=== PATIENT | male | born 1945 | race Hispanic/Latino ===

== ENCOUNTER 2020-04-06 16:17 | Inpatient (IN) | payer MEDICARE, OTHER ==
[2020-04-06] MEDS ORDERED: ACETAMINOPHEN 500 MG TAB PO ONE (16:47)
--- NOTE | 2020-04-06 16:52 | Emergency Department Report ---
ED Shortness of Breath HPI - General Chief Complaint: Dyspnea/Respdistress Stated Complaint: JANE/(L) RIB PAIN Time Seen by Provider: 04/06/20 16:45 Source: patient, EMS Mode of arrival: Stretcher Limitations: No Limitations - History of Present Illness Initial Comments: Mr. Hardin is a 74 years old male with history of CVA with left-sided weakness. Patient brought to the emergency room via EMS from home for evaluation of left- sided rib pain, shortness of breath and difficulty in breathing. Patient also found to be febrile with a temperature of 100.5. Patient stated the symptoms started today he was doing well yesterday. Patient also stated that he has been nauseated this morning but no vomiting. Patient denied any contact with COVID- 19 patients. MD Complaint: shortness of breath, cough, chest pain -: This morning Quality: aching - Related Data Home Medications Medication Instructions Recorded Confirmed Last Taken Unobtainable 04/07/20 04/07/20 Unknown Allergies Allergy/AdvReac Type Severity Reaction Status Date / Time No Known Allergies Allergy Unverified 04/06/20 19:32 ED Review of Systems ROS: Stated complaint: JANE/(L) RIB PAIN Other details as noted in HPI Comment: All other systems reviewed and negative Constitutional: chills, fever Respiratory: cough, orthopnea, shortness of breath, SOB with exertion, SOB at rest Cardiovascular: chest pain. denies: palpitations, dyspnea on exertion Gastrointestinal: nausea. denies: abdominal pain, vomiting, diarrhea, constipation, hematemesis, melena, hematochezia Musculoskeletal: denies: back pain Neurological: denies: headache ED Past Medical Hx - Medications Home Medications: Home Medications Medication Instructions Recorded Confirmed Last Taken Type Unobtainable 04/07/20 04/07/20 Unknown History ED Physical Exam - General Limitations: No Limitations General appearance: alert, in distress (Moderate respiratory distress) - Head Head exam: Present: atraumatic, normocephalic, normal inspection - Eye Eye exam: Present: normal appearance - Neck Neck exam: Present: normal inspection, full ROM. Absent: tenderness, men ingismus - Respiratory Respiratory exam: Present: respiratory distress, decreased breath sounds. Absent: wheezes - Cardiovascular Cardiovascular Exam: Present: regular rate, normal rhythm, normal heart sounds - GI/Abdominal GI/Abdominal exam: Present: soft, normal bowel sounds. Absent: distended, tenderness, guarding, rebound, rigid, organomegaly, mass, bruit, pulsatile mass, hernia - Extremities Exam Extremities exam: Present: normal capillary refill, pedal edema. Absent: calf tenderness - Back Exam Back exam: Present: normal inspection, full ROM. Absent: tenderness, CVA tenderness (R), CVA tenderness (L) - Neurological Exam Neurological exam: Present: alert, oriented X3 - Psychiatric Psychiatric exam: Present: normal mood - Skin Skin exam: Present: warm, intact ED Course Vital Signs 04/06/20 04/06/20 04/06/20 19:46 20:00 20:16 Temperature Pulse Rate 125 H Respiratory 30 H 28 H 22 Rate Blood Pressure 122/64 122/64 134/52 Blood Pressure [Left] O2 Sat by Pulse 96 Oximetry 04/06/20 04/06/20 04/06/20 20:30 20:32 20:40 Temperature 98.9 F Pulse Rate 112 H Respiratory 20 22 22 Rate Blood Pressure 122/64 Blood Pressure [Left] O2 Sat by Pulse 98 Oximetry 04/06/20 04/06/20 04/06/20 20:46 21:10 21:16 Temperature Pulse Rate Respiratory 21 Rate Blood Pressure 122/64 122/64 122/64 Blood Pressure [Left] O2 Sat by Pulse 98 96 Oximetry 04/06/20 04/06/20 04/06/20 21:30 21:46 22:00 Temperature Pulse Rate Respiratory Rate Blood Pressure 134/52 134/52 134/52 Blood Pressure [Left] O2 Sat by Pulse 96 96 97 Oximetry 04/06/20 04/06/20 04/06/20 22:16 22:30 22:46 Temperature Pulse Rate Respiratory Rate Blood Pressure 101/44 101/44 101/44 Blood Pressure [Left] O2 Sat by Pulse 97 98 98 Oximetry 04/06/20 04/06/20 04/06/20 23:00 23:16 23:30 Temperature Pulse Rate Respiratory Rate Blood Pressure 101/44 94/52 94/52 Blood Pressure [Left] O2 Sat by Pulse 95 97 96 Oximetry 04/06/20 04/06/20 04/07/20 23:46 23:55 00:00 Temperature Pulse Rate 94 H Respiratory 20 Rate Blood Pressure 94/52 101/62 Blood Pressure [Left] O2 Sat by Pulse 97 97 95 Oximetry 04/07/20 04/07/20 04/07/20 00:16 00:18 00:30 Temperature Pulse Rate Respiratory Rate Blood Pressure 101/62 101/62 101/62 Blood Pressure [Left] O2 Sat by Pulse 96 96 96 Oximetry 04/07/20 04/07/20 04/07/20 00:46 01:00 01:16 Temperature Pulse Rate Respiratory Rate Blood Pressure 101/62 112/58 112/58 Blood Pressure [Left] O2 Sat by Pulse 97 97 98 Oximetry 04/07/20 04/07/20 04/07/20 01:30 01:46 02:00 Temperature Pulse Rate 96 H Respiratory Rate Blood Pressure 112/58 112/58 112/58 Blood Pressure [Left] O2 Sat by Pulse 99 100 100 Oximetry 04/07/20 04/07/20 04/07/20 02:16 02:30 02:46 Temperature Pulse Rate Respiratory Rate Blood Pressure 127/52 127/52 127/52 Blood Pressure [Left] O2 Sat by Pulse 100 100 99 Oximetry 04/07/20 04/07/20 04/07/20 03:00 03:16 03:30 Temperature Pulse Rate Respiratory Rate Blood Pressure 127/52 112/66 112/66 Blood Pressure [Left] O2 Sat by Pulse 100 100 99 Oximetry 04/07/20 04/07/20 04/07/20 03:46 04:00 04:16 Temperature Pulse Rate 92 H Respiratory Rate Blood Pressure 112/66 112/66 116/55 Blood Pressure [Left] O2 Sat by Pulse 98 100 100 Oximetry 04/07/20 04/07/20 04/07/20 04:30 04:46 05:00 Temperature Pulse Rate Respiratory Rate Blood Pressure 116/55 116/55 125/74 Blood Pressure [Left] O2 Sat by Pulse 98 99 98 Oximetry 04/07/20 04/07/20 04/07/20 05:16 05:34 05:46 Temperature Pulse Rate 95 H Respiratory 17 20 Rate Blood Pressure 125/74 125/74 125/74 Blood Pressure [Left] O2 Sat by Pulse 87 97 Oximetry 04/07/20 04/07/20 04/07/20 06:00 06:16 06:30 Temperature Pulse Rate 92 H 86 84 Respiratory 17 16 15 Rate Blood Pressure 121/66 125/74 125/74 Blood Pressure [Left] O2 Sat by Pulse 99 100 100 Oximetry 04/07/20 04/07/20 04/07/20 06:46 07:00 08:00 Temperature Pulse Rate 80 95 H 96 H Respiratory 16 10 L 20 Rate Blood Pressure 121/66 135/77 132/69 Blood Pressure [Left] O2 Sat by Pulse 100 100 99 Oximetry 04/07/20 04/07/20 04/07/20 09:00 10:00 11:00 Temperature Pulse Rate 102 H 104 H 99 H Respiratory 21 22 20 Rate Blood Pressure 124/69 130/76 130/76 Blood Pressure [Left] O2 Sat by Pulse 96 96 98 Oximetry 04/07/20 04/07/20 04/07/20 12:00 13:00 14:00 Temperature Pulse Rate 103 H 104 H 104 H Respiratory 13 24 20 Rate Blood Pressure 118/67 136/73 125/75 Blood Pressure [Left] O2 Sat by Pulse 99 98 100 Oximetry 04/07/20 04/07/20 04/07/20 15:00 16:00 19:40 Temperature 98.2 F Pulse Rate 108 H Respiratory 14 Rate Blood Pressure 134/71 140/76 Blood Pressure 134/63 [Left] O2 Sat by Pulse 98 97 96 Oximetry ED Medical Decision Making - Lab Data Result diagrams: 04/07/20 04:35 04/07/20 04:35 - EKG Data -: EKG Interpreted by Pa EKG shows normal: sinus rhythm Rate: tachycardia - EKG Data Interpretation: no acute changes - Radiology Data Radiology results: report reviewed - Medical Decision Making Mr. Hardin is a 74 years old male with history of CVA with left-sided weakness. Patient brought to the emergency room via EMS from home for evaluation of left-sided rib pain, shortness of breath and difficulty in breathing. Patient also found to be febrile with a temperature of 100.5. Patient stated the symptoms started today he was doing well yesterday. Patient also stated that he has been nauseated this morning but no vomiting. Patient denied any contact with COVID-19 patients. Patient found to be febrile and tachycardic. Sepsis protocol initiated. COVID- 19 testing has been ordered also. Patient received Levaquin since family informed us that the only antibiotic that he is not allergic to his Levaquin. No previous record in this hospital. Chest x-ray is unremarkable. D-dimer came back more than 10,000 CTA chest is negative for pulmonary embolism or pneumonia. I discussed the patient with Dr. Foster from [facility] and she advised to admit the patient to our hospital here at [facility] and they will follow-up with the patient in the morning. I discussed the patient with Dr. Guerrero, he agreed to admit the patient to medical service for further management. Critical Care Time: Yes Critical care time in (mins) excluding proc time.: 30 Critical care attestation.: If time is entered above; I have spent that time in minutes in the direct care of this critically ill patient, excluding procedure time. ED Disposition Clinical Impression: Suspected COVID-19 virus infection, Chest pain, Sepsis Disposition: OP ADMIT IP TO THIS HOSP Is pt being admited?: Yes Condition: Stable
--- NOTE | 2020-04-06 17:20 | XRay Report ---
CHEST 1 VIEW 04/06/2020 4:03 PM INDICATION / CLINICAL INFORMATION: Dyspnea. COMPARISON: None available. FINDINGS: SUPPORT DEVICES: None. HEART / MEDIASTINUM: No significant abnormality. LUNGS / PLEURA: There is probable bibasilar atelectasis. The lungs are otherwise clear. No significan t pleural effusion. No pneumothorax. ADDITIONAL FINDINGS: No significant additional findings. IMPRESSION: Probable bibasilar atelectasis. Signer Name: Lam Temple MD Signed: 04/06/2020 5:15 PM Workstation Name: [id number]
[2020-04-06 17:54] LABS: Basophils % (Auto) 0.2 % (0.0-1.8); Eosinophils % (Auto) 0.3 % (0.0-4.3); Hematocrit 48.6 % (35.5-45.6); Hemoglobin 16.6 gm/dl (11.8-15.2); Lymphocytes # (Auto) 0.3 K/mm3 (1.2-5.4); Lymphocytes % (Auto) 3.5 % (13.4-35.0); Mean Corpuscular HGB Conc 34 % (32-34); Mean Corpuscular Volume 105 fl (84-94); Monocytes # (Auto) 0.8 K/mm3 (0.0-0.8); Monocytes % (Auto) 8.1 % (0.0-7.3); Platelet Count 114 K/mm3 (140-440); Red Blood Count 4.62 M/mm3 (3.65-5.03); Red Cell Distribution Width 14.5 % (13.2-15.2)
[2020-04-06 18:04] LABS: Alanine Aminotransferase 32 units/L (7-56); Albumin 3.9 g/dL (3.9-5); BUN/Creatinine Ratio 17; Bilirubin,Direct 0.6 mg/dL (0-0.2); Blood Urea Nitrogen 10 mg/dL (9-20); Calcium 9.1 mg/dL (8.4-10.2); Hemolysis Index 81
--- NOTE | 2020-04-06 21:37 | Cat Scan Report ---
CTA CHEST WITH IV CONTRAST INDICATION / CLINICAL INFORMATION: Shortness of breath, chest pain. TECHNIQUE: Axial CT images were obtained through the chest after injection of 100 cc IV contrast. 3 plane MIP an d/or 3D reconstructions were produced. All CT scans at this location are performed using CT dose redu ction for [facility] by means of automated exposure control. COMPARISON: Chest radiograph earlier today. FINDINGS: PULMONARY ARTERIES: No pulmonary emboli. THORACIC AORTA: No significant abnormality. No dissection or aneurysm. HEART: No significant abnormality. CORONARY ARTERIES: Coronary artery calcification present PLEURA: No pleural effusion. No pneumothorax. LYMPH NODES: No significant adenopathy. LUNGS: No acute air space or interstitial disease. No evidence of pneumonia or mass. ADDITIONAL FINDINGS: None. UPPER ABDOMEN: No acute findings. SKELETAL STRUCTURES: Spondylitic change but no acute osseous abnormality. IMPRESSION: 1. No CT evidence for pulmonary embolism. 2. No acute findings. No visible pneumonia. Signer Name: Gilma Hunter MD Signed: 04/06/2020 9:33 PM Workstation Name: [id number]
[2020-04-06] MEDS ORDERED: SODIUM CHLORIDE 0.9% 1000 ML IV SOLN IV ONE (22:15)
[2020-04-06] MEDS ORDERED: MAGNESIUM HYDROXIDE (MOM) ORAL LIQD UDC PO PRN (23:52)
[2020-04-06] MEDS ORDERED: ACETAMINOPHEN 325 MG TAB PO PRN (23:52)
[2020-04-06] MEDS ORDERED: ONDANSETRON 4 MG/2 ML INJ IV PRN (23:52)
--- NOTE | 2020-04-07 00:03 | History and Physical Report ---
History of Present Illness Date of examination: 04/06/20 Date of admission: 04/06/20 22:56 Chief complaint: Chest pain Shortness of breath Nausea and vomiting Cough History of present illness: 34-year-old male with known history of CVA with left-sided weakness presents into the emergency room via EMS today for left-sided rib pain and shortness of breath. Patient has also been having some cough which is nonproductive, nausea and vomiting but no diarrhea. No abdominal pain. Symptoms were said to have started yesterday. Patient denies any recent travel and no sick contacts. No contacts with anyone with COVID-19. Upon arrival in the emergency room patient had a fever of about 100.5 F and tachycardic. Work-up reveals elevated d-dimer. CT angiogram was unremarkable. COVID markers were elevated. Patient started on empiric IV antibiotics and placed on isolation precautions and we await further work-up on COVID-19. NB: He is a [facility] patient and appropriate calls has been made by the ER physician. Past History Past Medical History: hypertension, stroke Past Surgical History: No surgical history Social history: no significant social history Medications and Allergies Allergies Allergy/AdvReac Type Severity Reaction Status Date / Time No Known Allergies Allergy Unverified 04/06/20 19:32 Home Medications Medication Instructions Recorded Confirmed Last Taken Type Unobtainable 04/07/20 04/07/20 Unknown History Review of Systems Constitutional: fever, chills Cardiovascular: chest pain, no palpitations Respiratory: cough, shortness of breath Gastrointestinal: nausea, vomiting, no abdominal pain, no diarrhea, no melena Genitourinary Male: no dysuria, no hematuria, no flank pain Musculoskeletal: no neck pain, no low back pain Integumentary: no rash, no pruritis Neurological: no syncope, no headaches, no confusion Exam - Constitutional Vitals: Temp Pulse Resp BP Pulse Ox 98.9 F 112 H 22 122/64 98 04/06/20 20:40 04/06/20 20:40 04/06/20 20:40 04/06/20 20:00 04/06/20 20:32 General appearance: Present: no acute distress, well-nourished - EENT Eyes: Present: PERRL, EOM intact ENT: hearing intact, clear oral mucosa, dentition normal - Neck Neck: Present: supple, normal ROM - Respiratory Respiratory effort: normal Respiratory: bilateral: CTA - Cardiovascular Rhythm: regular Heart Sounds: Present: S1 & S2. Absent: gallop, systolic murmur, diastolic murmur, rub - Extremities Extremities: no ischemia, pulses intact, pulses symmetrical, Full ROM Extremity abnormal: edema (1+) Peripheral Pulses: within normal limits - Abdominal General gastrointestinal: Present: soft, non-tender, non-distended, normal bowel sounds. Absent: mass - Integumentary Integumentary: Present: clear, warm, dry - Musculoskeletal Musculoskeletal: strength equal bilaterally - Psychiatric Psychiatric: appropriate mood/affect, intact judgment & insight, memory intact, cooperative - Neurologic Neurologic: CNII-XII intact, no focal deficits, moves all extremities HEART Score - HEART Score Troponin: Troponin T < 0.010 ng/mL (0.00-0.029) 04/06/20 22:55 Results - Labs CBC & Chem 7: 04/06/20 17:27 04/06/20 17:27 Labs: Abnormal lab results 04/06/20 04/06/20 04/06/20 Range/Units 17:27 17:27 17:27 Hgb 16.6 H (11.8-15.2) gm/dl Hct 48.6 H (35.5-45.6) % MCV 105 H (84-94) fl MCH 36 H (28-32) pg Plt Count 114 L (140-440) K/mm3 Lymph % (Auto) 3.5 L (13.4-35.0) % [place] % (Auto) 8.1 H (0.0-7.3) % Lymph # 0.3 L (1.2-5.4) K/mm3 Seg Neutrophils % 87.9 H (40.0-70.0) % Seg Neutrophils # 8.5 H (1.8-7.7) K/mm3 D-Dimer > 83515 H (0-234) ng/mlDDU Sodium 130 L (137-145) mmol/L Chloride 92.0 L (98-107) mmol/L Creatinine 0.6 L (0.8-1.5) mg/dL Glucose 108 H (75-100) mg/dL Ferritin (13.0-400.0) ng/mL Total Bilirubin 1.80 H (0.1-1.2) mg/dL Direct Bilirubin 0.6 H (0-0.2) mg/dL Lactate Dehydrogenase 292 H (91-180) units/L C-Reactive Protein 7.70 H (0.00-1.30) mg/dL Total Protein 6.1 L (6.3-8.2) g/dL 04/06/20 Range/Units 17:27 Hgb (11.8-15.2) gm/dl Hct (35.5-45.6) % MCV (84-94) fl MCH (28-32) pg Plt Count (140-440) K/mm3 Lymph % (Auto) (13.4-35.0) % [place] % (Auto) (0.0-7.3) % Lymph # (1.2-5.4) K/mm3 Seg Neutrophils % (40.0-70.0) % Seg Neutrophils # (1.8-7.7) K/mm3 D-Dimer (0-234) ng/mlDDU Sodium (137-145) mmol/L Chloride (98-107) mmol/L Creatinine (0.8-1.5) mg/dL Glucose (75-100) mg/dL Ferritin 998.5 H (13.0-400.0) ng/mL Total Bilirubin (0.1-1.2) mg/dL Direct Bilirubin (0-0.2) mg/dL Lactate Dehydrogenase (91-180) units/L C-Reactive Protein (0.00-1.30) mg/dL Total Protein (6.3-8.2) g/dL Assessment and Plan - Patient Problems (1) Suspected COVID-19 virus infection Current Visit: Yes Status: Acute Plan to address problem: Patient placed on isolation precautions. . We will also commence patient on IV steroid while awaiting evaluation and further recommendation from infectious disease. . (2) Sepsis Current Visit: Yes Status: Acute Plan to address problem: We will continue on IV fluid and empiric IV antibiotics. (3) DVT prophylaxis Current Visit: Yes Status: Acute Plan to address problem: Patient placed on subcutaneous Lovenox (4) Full code status Current Visit: Yes Status: Acute
[2020-04-07] MEDS ORDERED: SODIUM CHLORIDE 0.9% 1000 ML 1,000 ML ONE (04:52)
[2020-04-07 05:32] LABS: Basophils % (Auto) 0.6 % (0.0-1.8); Eosinophils % (Auto) 0.6 % (0.0-4.3); Hematocrit 38.5 % (35.5-45.6); Hemoglobin 13.6 gm/dl (11.8-15.2); Lymphocytes # (Auto) 0.3 K/mm3 (1.2-5.4); Lymphocytes % (Auto) 4.4 % (13.4-35.0); Mean Corpuscular HGB Conc 36 % (32-34); Mean Corpuscular Volume 106 fl (84-94); Monocytes # (Auto) 0.5 K/mm3 (0.0-0.8); Monocytes % (Auto) 7.2 % (0.0-7.3); Platelet Count 113 K/mm3 (140-440); Red Blood Count 3.62 M/mm3 (3.65-5.03); Red Cell Distribution Width 14.5 % (13.2-15.2)
[2020-04-07 05:42] LABS: INR 1.17 (0.87-1.13)
[2020-04-07 05:54] LABS: BUN/Creatinine Ratio 18; Blood Urea Nitrogen 11 mg/dL (9-20); Calcium 7.7 mg/dL (8.4-10.2); Hemolysis Index 7
[2020-04-07 06:09] LABS: Bilirubin,Urine NEG (Negative); Blood,Urine NEG (Negative); Color,Urine Yellow (Yellow); Protein,Urine <15 mg/dL mg/dL (Negative); Urobilinogen,Urine < 2.0 mg/dL (<2.0); WBC,Urine < 1.0 /HPF (0.0-6.0)
--- NOTE | 2020-04-07 08:21 | Progress Note ---
Assessment and Plan Assessment and plan: Sepsis. Continue IV antibiotics and follow culture results. Suspected COVID-19 infection. Continue isolation precautions. Inflammatory markers are elevated with ferritin 998, LDH 292, CRP 7.7, d-dimer pending. Await COVID testing. CTA negative. DVT prophylaxis. Continue Lovenox daily History Interval history: No new issues overnight. Hospitalist Physical - Constitutional Vitals: Temp Pulse Resp BP Pulse Ox 98.9 F 95 H 10 L 135/77 100 04/06/20 20:40 04/07/20 07:00 04/07/20 07:00 04/07/20 07:00 04/07/20 07:00 General appearance: Present: no acute distress, well-nourished - EENT Eyes: Present: PERRL, EOM intact ENT: hearing intact, clear oral mucosa, dentition normal - Neck Neck: Present: supple, normal ROM - Respiratory Respiratory effort: normal Respiratory: bilateral: CTA - Cardiovascular Rhythm: regular Heart Sounds: Present: S1 & S2. Absent: gallop, rub - Extremities Extremities: no ischemia, No edema, Full ROM - Abdominal General gastrointestinal: soft, non-tender, non-distended, normal bowel sounds - Integumentary Integumentary: Present: clear, warm, dry - Neurologic Neurologic: CNII-XII intact, moves all extremities HEART Score - HEART Score Troponin: Troponin T < 0.010 ng/mL (0.00-0.029) 04/06/20 22:55 Results - Labs CBC & Chem 7: 04/07/20 04:35 04/07/20 04:35 Labs: Laboratory Last Values WBC 7.1 K/mm3 (4.5-11.0) 04/07/20 04:35 RBC 3.62 M/mm3 (3.65-5.03) L 04/07/20 04:35 Hgb 13.6 gm/dl (11.8-15.2) D 04/07/20 04:35 Hct 38.5 % (35.5-45.6) D 04/07/20 04:35 MCV 106 fl (84-94) H 04/07/20 04:35 MCH 38 pg (28-32) H 04/07/20 04:35 MCHC 36 % (32-34) H 04/07/20 04:35 RDW 14.5 % (13.2-15.2) 04/07/20 04:35 Plt Count 113 K/mm3 (140-440) L 04/07/20 04:35 Lymph % (Auto) 4.4 % (13.4-35.0) L 04/07/20 04:35 [place] % (Auto) 7.2 % (0.0-7.3) 04/07/20 04:35 Eos % (Auto) 0.6 % (0.0-4.3) 04/07/20 04:35 Baso % (Auto) 0.6 % (0.0-1.8) 04/07/20 04:35 Lymph # 0.3 K/mm3 (1.2-5.4) L 04/07/20 04:35 [place] # 0.5 K/mm3 (0.0-0.8) 04/07/20 04:35 Eos # 0.0 K/mm3 (0.0-0.4) 04/07/20 04:35 Baso # 0.0 K/mm3 (0.0-0.1) 04/07/20 04:35 Seg Neutrophils % 87.2 % (40.0-70.0) H 04/07/20 04:35 Seg Neutrophils # 6.2 K/mm3 (1.8-7.7) 04/07/20 04:35 PT 14.7 Sec. (12.2-14.9) 04/07/20 04:35 INR 1.17 (0.87-1.13) H 04/07/20 04:35 APTT 26.0 Sec. (24.2-36.6) 04/06/20 17:27 D-Dimer > 29301 ng/mlDDU (0-234) H 04/06/20 17:27 Sodium 134 mmol/L (137-145) L 04/07/20 04:35 Potassium 3.5 mmol/L (3.6-5.0) L 04/07/20 04:35 Chloride 98.0 mmol/L (98-107) 04/07/20 04:35 Carbon Dioxide 24 mmol/L (22-30) 04/07/20 04:35 Anion Gap 16 mmol/L 04/07/20 04:35 BUN 11 mg/dL (9-20) 04/07/20 04:35 Creatinine 0.6 mg/dL (0.8-1.5) L 04/07/20 04:35 Estimated GFR > 60 ml/min 04/07/20 04:35 BUN/Creatinine Ratio 18 % 04/07/20 04:35 Glucose 102 mg/dL (75-100) H 04/07/20 04:35 Lactic Acid 0.70 mmol/L (0.7-2.0) 04/07/20 04:35 Calcium 7.7 mg/dL (8.4-10.2) L D 04/07/20 04:35 Ferritin 998.5 ng/mL (13.0-400.0) H 04/06/20 17:27 Total Bilirubin 1.80 mg/dL (0.1-1.2) H 04/06/20 17:27 Direct Bilirubin 0.6 mg/dL (0-0.2) H 04/06/20 17:27 Indirect Bilirubin 1.2 mg/dL 04/06/20 17:27 AST 40 units/L (5-40) 04/06/20 17:27 ALT 32 units/L (7-56) 04/06/20 17:27 Alkaline Phosphatase 57 units/L (35-129) 04/06/20 17:27 Lactate Dehydrogenase 292 units/L (91-180) H 04/06/20 17:27 Troponin T < 0.010 ng/mL (0.00-0.029) 04/06/20 22:55 C-Reactive Protein 7.70 mg/dL (0.00-1.30) H 04/06/20 17:27 NT-Pro-B Natriuret Pep 491.7 pg/mL (0-900) 04/06/20 17:27 Total Protein 6.1 g/dL (6.3-8.2) L 04/06/20 17:27 Albumin 3.9 g/dL (3.9-5) 04/06/20 17:27 Albumin/Globulin Ratio 1.8 % 04/06/20 17:27 Procalcitonin 0.10 ng/mL (<0.15) 04/06/20 17:27 Urine Color Yellow (Yellow) 04/07/20 05:44 Urine Turbidity Clear (Clear) 04/07/20 05:44 Urine pH 6.0 (5.0-7.0) 04/07/20 05:44 Ur Specific [place] 1.054 (1.003-1.030) H 04/07/20 05:44 Urine Protein <15 mg/dl mg/dL (Negative) 04/07/20 05:44 Urine Glucose (UA) Neg mg/dL (Negative) 04/07/20 05:44 Urine Ketones Tr mg/dL (Negative) 04/07/20 05:44 Urine Blood Neg (Negative) 04/07/20 05:44 Urine Nitrite Neg (Negative) 04/07/20 05:44 Urine Bilirubin Neg (Negative) 04/07/20 05:44 Urine Urobilinogen < 2.0 mg/dL (<2.0) 04/07/20 05:44 Ur Leukocyte Esterase Neg (Negative) 04/07/20 05:44 Urine WBC (Auto) < 1.0 /HPF (0.0-6.0) 04/07/20 05:44 Urine RBC (Auto) 2.0 /HPF (0.0-6.0) 04/07/20 05:44 Microbiology: Microbiology 04/07/20 Unknown Peripheral/Venous Blood Culture - Preliminary Culture in Progress 04/07/20 Unknown Peripheral/Venous Blood Culture - Preliminary Culture in Progress 04/06/20 17:27 Peripheral/Venous Blood Culture - Preliminary Culture in Progress 04/06/20 17:27 Peripheral/Venous Blood Culture - Preliminary Culture in Progress Active Medications - Current Medications Current Medications: Generic Name Dose Route Start Last Admin Trade Name Freq PRN Reason Stop Dose Admin Acetaminophen 650 mg 04/06/20 23:52 Tylenol PO Q4H PRN Pain MILD(1-3)/Fever >100.5/CASTRO Dexamethasone 6 mg 04/07/20 10:00 Decadron IV Q24HR [facility] Enoxaparin Sodium 40 mg 04/07/20 22:00 Enoxaparin SUB-Q QDAY@2200 [facility] Sodium Chloride 1,000 mls @ 125 mls/hr 04/06/20 23:45 Nacl 0.9% 1000 Ml IV DIRECT BEV Levofloxacin/Dextrose 750 mg in 150 mls @ 100 mls/hr 04/07/20 10:00 Levaquin 750mg/150ml IV Q24HR [facility] Protocol Magnesium Hydroxide 30 ml 07/12/20 23:52 Milk Of Magnesia PO Q4H PRN Constipation Ondansetron HCl 4 mg 04/06/20 23:52 Zofran IV Q8H PRN Nausea And Vomiting Sodium Chloride 10 ml 04/07/20 10:00 Sodium Chloride Flush Syringe 10 Ml IV BID BEV Sodium Chloride 10 ml 04/06/20 23:52 Sodium Chloride Flush Syringe 10 Ml IV PRN PRN LINE FLUSH
[2020-04-07] MEDS ORDERED: dexAMETHasone 4 MG/ML VIAL IV SCH (10:00)
[2020-04-07] MEDS ORDERED: dexAMETHasone 4 MG/ML VIAL ONE (11:44)
[2020-04-07] MEDS ORDERED: ENOXAPARIN 40 MG/0.4 ML INJ SUB-Q ONE (22:10)
[2020-04-07] MEDS: ENOXAPARIN 40 MG/0.4 ML INJ SUB-Q SCH (22:13)
[2020-04-08] MEDS ORDERED: SODIUM CHLORIDE 0.9% 1000 ML 1,000 ML ONE (02:30)
[2020-04-08] MEDS: SODIUM CHLORIDE 0.9% 1000 ML 1,000 ML IV SCH ×2 (02:55→14:32)
[2020-04-08] MEDS ORDERED: DEXAMETHASONE 4 MG TAB PO SCH (10:00)
[2020-04-08 14:11] LABS: Albumin 3.4 g/dL (3.9-5)
[2020-04-08 14:36] LABS: Alanine Aminotransferase 30 units/L (7-56); BUN/Creatinine Ratio 20; Blood Urea Nitrogen 12 mg/dL (9-20); Calcium 8.3 mg/dL (8.4-10.2); Hemolysis Index 165
--- NOTE | 2020-04-08 18:16 | Ultrasound Report ---
ULTRASOUND ABDOMEN, COMPLETE INDICATION: abdominal pain. COMPARISON: No relevant prior imaging study available. FINDINGS: Pancreas: No significant abnormality. Abdominal Aorta: There is mild ectasia of the abdominal aorta.. IVC: No significant abnormality. Liver: Liver is heterogeneous in echotexture with some increased echogenicity noted. Gallbladder: No significant abnormality. Bile ducts: No significant abnormality. Common bile duct measures 3 mm. Kidneys: Right: No significant abnormality. Left : No significant abnormality. Spleen: Spleen measures 12.3 cm in length. No focal splenic lesions are seen.. Free fluid: None. Additional Findings: None. IMPRESSION: 1. The liver is heterogeneous in echotexture. This is not specific. This could represent fatty infilt ration.. This could represent hepatocellular disease. Signer Name: Luis Hemphill MD Signed: 04/08/2020 6:11 PM Workstation Name: [id number]
--- NOTE | 2020-04-08 19:01 | Progress Note ---
Assessment and Plan Assessment and plan: 34-year-old male with known history of CVA with left-sided weakness presents into the emergency room via EMS today for left-sided rib pain and shortness of breath. Patient has also been having some cough which is nonproductive, nausea and vomiting but no diarrhea. No abdominal pain. Symptoms were said to have started yesterday. Patient denies any recent travel and no sick contacts. No contacts with anyone with COVID-19. Upon arrival in the emergency room patient had a fever of about 100.5 F and tachycardic. Work-up reveals elevated d-dimer. CT angiogram was unremarkable. COVID markers were elevated. Patient started on empiric IV antibiotics and placed on isolation precautions and we await further work-up on COVID-19. NB: He is a [place] patient and appropriate calls has been made by the ER physician. * Will obtain physical therapy evaluation and treat continue antibiotics for bilateral lower extremity cellulitis. Anticipate discharge in a.m. with home health. If fever free. Patient normally is able to move out of bed to chair and assist with transfers but has been very lethargic. No evidence of new CVA. Chest x-ray:IMPRESSION: Probable bibasilar atelectasis. - Patient Problems (1) Suspected COVID-19 virus infection: Ruled out COVID testing is negative Discontinue isolation precautions. . Discontinue steroids and ID consult (2) Sepsis likely secondary to bilateral lower extremity cellulitis Current Visit: Yes Status: Acute Plan to address problem: We will continue on IV fluid and empiric IV antibiotics. (3) bilateral lower extremity cellulitis Left upper extremity hemiplegia Prior CVA Thrombocytopenia Bilateral lower extremity atelectasis Encouraged deep breaths. DVT prophylaxis Current Visit: Yes Status: Acute Plan to address problem: Patient placed on subcutaneous Lovenox Full code status Current Visit: Yes Status: Acute History Interval history: Patient seen and examined reports mild improvement in symptoms still lethargic. Bilateral lower extremity edema with some redness and warmth noted. Patient reports that he felt weak and tired and his family noted that his temperature was elevated based on the thermometer. Hospitalist Physical - Physical exam Narrative exam: General appearance: Present: no acute distress, well-nourished - EENT Eyes: Present: PERRL, EOM intact ENT: hearing intact, clear oral mucosa, dentition normal - Neck Neck: Present: supple, normal ROM - Respiratory Respiratory effort: normal Respiratory: bilateral: CTA - Cardiovascular Rhythm: regular Heart Sounds: Present: S1 & S2. Absent: gallop, systolic murmur, diastolic murmur, rub - Extremities Extremities: no ischemia, pulses intact, pulses symmetrical, Full ROM Extremity abnormal: edema (1+) Peripheral Pulses: within normal limits - Abdominal General gastrointestinal: Present: soft, non-tender, non-distended, normal bowel sounds. Absent: mass - Integumentary Integumentary: Present: clear, warm, dry - Musculoskeletal Musculoskeletal: 0/5 IN LEFT UPPER EXT AND 3/5 LEFT LOWER EXT. NORMAL MOTOR STRENGHT ON RIGHT UPPER EXT - Psychiatric Psychiatric: appropriate mood/affect, intact judgment & insight, memory intact, cooperative - Neurologic Neurologic: CNII-XII intact, left upper extremity hemiparesis - Constitutional Vitals: Temp Pulse Resp BP Pulse Ox 98.9 F 90 22 162/78 96 04/08/20 12:16 04/08/20 12:55 04/08/20 12:55 04/08/20 12:16 04/08/20 12:16 General appearance: Present: no acute distress, well-nourished HEART Score - HEART Score Troponin: Troponin T < 0.010 ng/mL (0.00-0.029) 04/06/20 22:55 Results - Labs CBC & Chem 7: 04/07/20 04:35 04/08/20 13:45 Labs: Laboratory Last Values WBC 7.1 K/mm3 (4.5-11.0) 04/07/20 04:35 RBC 3.62 M/mm3 (3.65-5.03) L 04/07/20 04:35 Hgb 13.6 gm/dl (11.8-15.2) D 04/07/20 04:35 Hct 38.5 % (35.5-45.6) D 04/07/20 04:35 MCV 106 fl (84-94) H 04/07/20 04:35 MCH 38 pg (28-32) H 04/07/20 04:35 MCHC 36 % (32-34) H 04/07/20 04:35 RDW 14.5 % (13.2-15.2) 04/07/20 04:35 Plt Count 113 K/mm3 (140-440) L 04/07/20 04:35 Lymph % (Auto) 4.4 % (13.4-35.0) L 04/07/20 04:35 [place] % (Auto) 7.2 % (0.0-7.3) 04/07/20 04:35 Eos % (Auto) 0.6 % (0.0-4.3) 04/07/20 04:35 Baso % (Auto) 0.6 % (0.0-1.8) 04/07/20 04:35 Lymph # 0.3 K/mm3 (1.2-5.4) L 04/07/20 04:35 [place] # 0.5 K/mm3 (0.0-0.8) 04/07/20 04:35 Eos # 0.0 K/mm3 (0.0-0.4) 04/07/20 04:35 Baso # 0.0 K/mm3 (0.0-0.1) 04/07/20 04:35 Seg Neutrophils % 87.2 % (40.0-70.0) H 04/07/20 04:35 Seg Neutrophils # 6.2 K/mm3 (1.8-7.7) 04/07/20 04:35 PT 14.7 Sec. (12.2-14.9) 04/07/20 04:35 INR 1.17 (0.87-1.13) H 04/07/20 04:35 APTT 26.0 Sec. (24.2-36.6) 04/06/20 17:27 D-Dimer 511.56 ng/mlDDU (0-234) H 04/07/20 09:36 Sodium 136 mmol/L (137-145) L 04/08/20 13:45 Potassium 5.0 mmol/L (3.6-5.0) D 04/08/20 13:45 Chloride 100.1 mmol/L (98-107) 04/08/20 13:45 Carbon Dioxide 19 mmol/L (22-30) L 04/08/20 13:45 Anion Gap 22 mmol/L 04/08/20 13:45 BUN 12 mg/dL (9-20) 04/08/20 13:45 Creatinine 0.6 mg/dL (0.8-1.5) L 04/08/20 13:45 Estimated GFR > 60 ml/min 04/08/20 13:45 BUN/Creatinine Ratio 20 % 04/08/20 13:45 Glucose 126 mg/dL (75-100) H 04/08/20 13:45 Lactic Acid 0.70 mmol/L (0.7-2.0) 04/07/20 04:35 Calcium 8.3 mg/dL (8.4-10.2) L 04/08/20 13:45 Ferritin 998.5 ng/mL (13.0-400.0) H 04/06/20 17:27 Total Bilirubin 1.00 mg/dL (0.1-1.2) 04/08/20 13:45 Direct Bilirubin 0.6 mg/dL (0-0.2) H 04/06/20 17:27 Indirect Bilirubin 1.2 mg/dL 04/06/20 17:27 AST 42 units/L (5-40) H 04/08/20 13:45 ALT 30 units/L (7-56) 04/08/20 13:45 Alkaline Phosphatase 44 units/L (35-129) 04/08/20 13:45 Lactate Dehydrogenase 292 units/L (91-180) H 04/06/20 17:27 Troponin T < 0.010 ng/mL (0.00-0.029) 04/06/20 22:55 C-Reactive Protein 7.70 mg/dL (0.00-1.30) H 04/06/20 17:27 NT-Pro-B Natriuret Pep 491.7 pg/mL (0-900) 04/06/20 17:27 Total Protein 5.9 g/dL (6.3-8.2) L 04/08/20 13:45 Albumin 3.4 g/dL (3.9-5) L 04/08/20 13:45 Albumin/Globulin Ratio 1.4 % 04/08/20 13:45 Procalcitonin 0.10 ng/mL (<0.15) 04/06/20 17:27 Urine Color Yellow (Yellow) 04/07/20 05:44 Urine Turbidity Clear (Clear) 04/07/20 05:44 Urine pH 6.0 (5.0-7.0) 04/07/20 05:44 Ur Specific [place] 1.054 (1.003-1.030) H 04/07/20 05:44 Urine Protein <15 mg/dl mg/dL (Negative) 04/07/20 05:44 Urine Glucose (UA) Neg mg/dL (Negative) 04/07/20 05:44 Urine Ketones Tr mg/dL (Negative) 04/07/20 05:44 Urine Blood Neg (Negative) 04/07/20 05:44 Urine Nitrite Neg (Negative) 04/07/20 05:44 Urine Bilirubin Neg (Negative) 04/07/20 05:44 Urine Urobilinogen < 2.0 mg/dL (<2.0) 04/07/20 05:44 Ur Leukocyte Esterase Neg (Negative) 04/07/20 05:44 Urine WBC (Auto) < 1.0 /HPF (0.0-6.0) 04/07/20 05:44 Urine RBC (Auto) 2.0 /HPF (0.0-6.0) 04/07/20 05:44 Coronavirus (PCR) Negative (Negative) 04/06/20 Unknown Microbiology: Microbiology 04/07/20 Unknown Peripheral/Venous Blood Culture - Preliminary NO GROWTH AFTER 24 HOURS 04/07/20 Unknown Peripheral/Venous Blood Culture - Preliminary NO GROWTH AFTER 24 HOURS 04/06/20 17:27 Peripheral/Venous Blood Culture - Preliminary NO GROWTH AFTER 24 HOURS 04/06/20 17:27 Peripheral/Venous Blood Culture - Preliminary NO GROWTH AFTER 24 HOURS Aaron/IV: Voiding Method Condom Catheter IV Catheter Type [Right Wrist] INT / Saline Lock Active Medications - Current Medications Current Medications: Generic Name Dose Route Start Last Admin Trade Name Kylerq PRN Reason Stop Dose Admin Acetaminophen 650 mg 04/06/20 23:52 Tylenol PO Q4H PRN Pain MILD(1-3)/Fever >100.5/CASTRO Enoxaparin Sodium 40 mg 04/07/20 22:00 04/07/20 22:13 Enoxaparin SUB-Q 40 mg QDAY@2200 BEV Administration Sodium Chloride 1,000 mls @ 125 mls/hr 04/06/20 23:45 04/08/20 14:32 Nacl 0.9% 1000 Ml IV 125 mls/hr DIRECT BEV Administration Levofloxacin/Dextrose 750 mg in 150 mls @ 100 mls/hr 04/07/20 10:00 04/08/20 14:20 Levaquin 750mg/150ml IV 100 mls/hr Q24HR BEV Administration Protocol Magnesium Hydroxide 30 ml 04/06/20 23:52 Milk Of Magnesia PO Q4H PRN Constipation Ondansetron HCl 4 mg 04/06/20 23:52 Zofran IV Q8H PRN Nausea And Vomiting Sodium Chloride 10 ml 04/07/20 10:00 04/08/20 14:25 Sodium Chloride Flush Syringe 10 Ml IV 10 ml BID BEV Administration Sodium Chloride 10 ml 04/06/20 23:52 Sodium Chloride Flush Syringe 10 Ml IV PRN PRN LINE FLUSH
[2020-04-08] MEDS: METOPROLOL TARTRATE 25 MG TAB PO SCH (22:09)
[2020-04-08] MEDS: ENOXAPARIN 40 MG/0.4 ML INJ SUB-Q SCH (22:09)
[2020-04-09] MEDS: SODIUM CHLORIDE 0.9% 1000 ML 1,000 ML IV SCH (00:55)
--- NOTE | 2020-04-09 08:16 | Discharge Summary ---
Providers - Providers Date of Admission: 04/06/20 22:56 Attending physician: LUX SANTIAGO MD 04/08/20 17:01 Occupational Therapy Evaluate and Treat [CONS] Routine Comment: Reason For Exam: ataxia 04/08/20 17:02 Physical Therapy Evaluation and Treat [CONS] Routine Comment: Reason For Exam: ataxia [facility] Condition: Stable Hospital course: 74-year-old male with known history of CVA with left-sided weakness presents into the emergency room via EMS today for left-sided rib pain and shortness of breath. Patient has also been having some cough which is nonproductive, nausea and vomiting but no diarrhea. No abdominal pain. Symptoms were said to have started yesterday. Patient denies any recent travel and no sick contacts. No contacts with anyone with COVID-19. Upon arrival in the emergency room patient had a fever of about 100.5 F and tachycardic. Work-up reveals elevated d-dimer. CT angiogram was unremarkable. COVID markers were elevated. Patient started on empiric IV antibiotics and placed on isolation precautions and we await further work-up on COVID-19. NB: He is a [place] patient and appropriate calls has been made by the ER physician. * Will obtain physical therapy evaluation and treat continue antibiotics for bilateral lower extremity cellulitis. Anticipate discharge in a.m. with home health. If fever free. Patient normally is able to move out of bed to chair and assist with transfers but has been very lethargic. No evidence of new CVA. * Patient will like to go home with Physcial therapy, No new fever, additional lasix was given. I have spoken to his * Requested family to have heart doctor evaluation, Patient had seen one prior and was given sample of oral lasix. Chest x-ray:IMPRESSION: Probable bibasilar atelectasis. - Patient Problems Acute respiratory failure on admission saturation of 95% on 3 L and respiratory rate of 30 which has since improved. (1) Suspected COVID-19 virus infection: Ruled out COVID testing is negative Discontinue isolation precautions. . Discontinue steroids and ID consult (2) Sepsis likely secondary to bilateral lower extremity cellulitis Current Visit: Yes Status: Acute Plan to address problem: We will continue on IV fluid and empiric IV antibiotics. (3) bilateral lower extremity cellulitis Left upper extremity hemiplegia Prior CVA Thrombocytopenia Bilateral lower extremity atelectasis Encouraged deep breaths. Disposition: [id number] HOME UNDER HOME [facility] Time spent for discharge: 35 mins Exam - Constitutional Vitals: Temp Pulse Resp BP Pulse Ox 98.2 F 102 H 20 137/65 96 04/09/20 04:36 04/09/20 04:36 04/09/20 04:36 04/08/20 23:06 04/09/20 04:36 Plan Activity: advance as tolerated, fall precautions Diet: low fat Special Instructions: record daily weights, record daily BP diary, physical therapy, occupational therapy, home health RN [facility] [Referring[facility] - 3-5 Days Prescriptions: AtorvaSTATin [Lipitor] 40 mg PO QHS #30 tablet hydroCHLOROthiazide [HCTZ] 25 mg PO QDAY #30 tablet levoFLOXacin [Levaquin TAB] 500 mg PO QDAY #3 tablet Metoprolol [Lopressor TAB] 25 mg PO BID #60 tablet lisinopriL [Zestril TAB] 20 mg PO QDAY #30 tablet
[2020-04-09] MEDS ORDERED: FUROSEMIDE 40 MG/4 ML INJ IV ONE (09:00)
[2020-04-09] MEDS: METOPROLOL TARTRATE 25 MG TAB PO SCH (09:41)
[2020-04-09] MEDS ORDERED: hydroCHLOROthiazide 25 MG TAB PO SCH (10:00)
[2020-04-09] MEDS ORDERED: LISINOPRIL 20 MG TAB PO SCH (10:00)
[2020-04-09 14:51] VITALS: BP 142/77
--- NOTE | 2020-04-09 14:52 | Vascular Lab Report ---
DUPLEX DOPPLER LOWER EXTREMITY VEINS, BILATERAL INDICATION / CLINICAL INFORMATION: Bilateral leg swelling. TECHNIQUE: Duplex doppler imaging was performed through the veins of both lower extremities using venous damaso damir and other maneuvers. COMPARISON: None available. FINDINGS: RIGHT COMMON FEMORAL VEIN: Negative. RIGHT FEMORAL VEIN: Negative. RIGHT POPLITEAL VEIN: Negative. RIGHT CALF VEINS: Negative. LEFT COMMON FEMORAL VEIN: Negative. LEFT FEMORAL VEIN: Negative. LEFT POPLITEAL VEIN: Negative. LEFT CALF VEINS: Negative. ADDITIONAL FINDINGS: None. IMPRESSION: 1. No sonographic evidence for DVT in either lower extremity. Signer Name: Fabrice Lundberg MD Signed: 04/09/2020 2:48 PM Workstation Name: [email or web address]
== END 2020-04-09 17:31 | disposition home or self-care (01) | DRG 871 ==
LOC: ED 16:17 → 3A 22:56
PROVIDERS: ADMIT Internal Medicine Geriatric Medicine; ATTEND Internal Medicine
DX: A41.9 Sepsis, unspecified organism (principal); J96.00 Acute respiratory failure, unspecified whether with hypoxia or hypercapnia; L03.115 Cellulitis of right lower limb; L03.116 Cellulitis of left lower limb; J98.11 Atelectasis; I69.354 Hemiplegia and hemiparesis following cerebral infarction affecting left non-dominant side; I10 Essential (primary) hypertension; D69.6 Thrombocytopenia, unspecified; Z03.818 Encounter for observation for suspected exposure to other biological agents ruled out
CPT/HCPCS: 36415; 71045; 71275; 76700; 80048; 80053; 80076; 81001; 82140; 82728; 83615; 83880; 84145; 84484; 85025; 85379; 85610; 85730; 86140; 87040; 93005; 93970; G0378; A9270-GY; J1100; J1650; J1940; J1956; J7030; J8540; Q9967; U0003-CS